=== PATIENT | male | born 1970 ===

== ENCOUNTER 2021-11-09 14:20 | Inpatient (IN) | payer MEDICARE, OTHER ==
[2021-11-09] MEDS ORDERED: ACETAMINOPHEN TAB 325 MG TAB PO PRN (15:34)
[2021-11-09] MEDS ORDERED: MAG HYDROX/AL HYDROX/SIMETH 30 ML CUP PO PRN (15:34)
[2021-11-09] MEDS ORDERED: HALOPERIDOL LACTATE 5 MG/ML 1 ML VIAL IM PRN (15:34)
[2021-11-09] MEDS ORDERED: haloperidoL 5 MG TAB PO PRN (15:37)
[2021-11-09] MEDS ORDERED: LORazepam 2 MG/ML INJ IM PRN (15:37)
[2021-11-09] MEDS: ATORVASTATIN 10 MG TAB PO SCH (20:06)
[2021-11-09] MEDS: FAMOTIDINE 20 MG TAB PO SCH (20:06)
[2021-11-10] MEDS: LORazepam 1 MG TAB PO PRN ×2 (01:19→21:48)
[2021-11-10] MEDS: NICOTINE 14MG/24HR PATCH TRANSDERM SCH (08:54)
[2021-11-10] MEDS: TAMSULOSIN 0.4 MG CAP.ER.24H PO SCH (08:54)
--- NOTE | 2021-11-10 15:33 | P.HP ---
Psychiatric H&P - . H&P Date: 11/10/21 History & Physical: IDENTIFYING DATA: Patient is a 51 yo male with past psychiatric history of schizophrenia who was transferred from [facility] due to active hallucinations. HPI: Patient had presented to [facility] on 11/03/2021, and records from there indicate he has a history of schizophrenia and has not been talking his medications. He was reported being unable to sleep, racing thoughts, hearing voices. He was observed pacing the unit and his room, and displayed "bizarre" interactions. Patient was transferred to [facility] on 11/09/2021. On my assessment today, he is pleasant, attempts to cooperate, is hyperverbal with pressured speech. His thought process is disorganized and difficult to follow at times. He is a poor historian due to the severity of his symptoms. At several times he starts speaking what sounds like gibberish, which he reports is [place] that he learned in college when he liked a Nigerien girl. He reports auditory hallucinations, denies auditory hallucinations. Denies command auditory hallucinations, reports the voices are more and more helpful. Patient denies any suicidal or homicidal ideations intent or plan. He is paranoid and thinks the people at the correction are "knocking me out", giving me too much, but he states he was taking the medications. He can identify one of his medications as Clozapine. I reviewed his CBC from [facility] and his CBC completed on 11/02/21 shows absolute neutrophil count of 4.95. Patient admits to drinking alcohol, a few cans of Twisted Tea per week. He denies illicit drug use. He has a guardian Daiana Hyde at the [facility], and I called today to reach her but had to leave a message. PAST PSYCHIATRIC HISTORY: Patient states that he is diagnosed with a "little bit of depression, and some anxiety". Psychiatric medications: Clozapine, Zyprexa Previous psychiatric hospitalizations: [facility] Psychiatric outpatient follow-up: [facility], Patient denies any history of suicide attempts in the past. PMH: He is disorganized and not able to list his medical problems. ALLERGIES: as per EMR CHEMICAL DEPENDENCY HISTORY: He denies drug use. He drinks Twisted Ice Tea (a few a week). He smokes 2-5 cigarettes per day; used to smoke a 1 ppd. FAMILY PSYCHIATRIC/SUBSTANCE USE HISTORY: Mother - unknown mental health issues SOCIAL HISTORY: Never (reports he proposed to someone in [place]) and no children. He is close with his father and his aunt. He lives in a correction. MENTAL STATUS EXAM: General Appearance: Patient appears to be stated age, has fair hygiene, is dressed in hospital gown. Orientation: He is alert, and oriented to person, place. Unable to assess time due to severity of disorganized speech. Behavior: Patient is seated without any agitated behavior. He is pleasant, calm and cooperative. Speech: Patient's speech is fluent and somewhat pressured. Mood/Affect: Patient reports their mood is good, affect is congruent. Suicidality/Homicidality: Patient denies having any homicidal ideation or suicidal ideations, intent or plan] Perceptions: Patient denies any visual hallucinations. He does endorse auditory hallucinations of people talking to one another but cannot elaborate further. Though content: There is evidence of some delusional thought content, he believes the staff at the correction are messing with his medications and knocking him out. Thought process: Thoughts are disorganized with loose associations. Memory and concentration: Memory is impaired since he is not able to recall many details. Concentration is grossly intact for the purposes of this session. Judgment and insight: Fair to poor STRENGTHS/WEAKNESSES: Strength is that patient is resilient. Weakness is that patient has poor judgment and is impulsive. INTELLECT: Estimated as average to slightly below average. IMPRESSIONS: Schizophrenia Rule out schizoaffective disorder, bipolar type PLAN: -Patient is admitted under involuntary status to [facility] for stabilization of psychiatric symptoms and safety. I have called his guardian's office and they are closed today; I left a message for them to call us back for consent forms. A second certification was completed and along with petition will be filed for court. -Medications: Patient is prescribed Clozapine. I have reviewed his last CBC with diff, completed on 11/02/21 at [facility] and his ANC is normal. I have ordered a STAT CBC with diff for now, and depending on results we will restart his Clozapine. Restart Zyprexa at 20 mg QHS for psychosis. He appears to have been started on Keppra at [facility] but was not on this while at the correction and does not have a seizure disorder according to the correction. This was discussed with unit nurse who will attempt to verify the Keppra prescription with Ladonna Castaneda. -Ativan and Haldol PRN for agitation/aggression -Patient was informed of the risks, benefits and side effects of the medications. I called patient's guardian and left message regarding medications and need for consents. -Internal Medicine consult to perform medical evaluation and physical. -NRT - nicotine patch -SW on board for discharge planning. Encourage patient to participate in groups to work on coping skills. [] Allergies Allergy/AdvReac Type Severity Reaction Status Date / Time No Known Allergies Allergy Verified 11/10/21 13:26 Vital Signs Temp 97.2 F L 11/10/21 01:29 Pulse 83 11/10/21 01:29 Resp 14 11/10/21 01:29 BP 100/66 11/10/21 01:29 Pulse Ox 99 11/09/21 17:05 FiO2 Intake & Output 11/09/21 11/10/21 11/10/21 18:59 06:59 18:59 Weight 105 kg 105 kg Laboratory Last Values TSH 1.420 mIU/L (0.465-4.680) 11/10/21 09:10 11/10/21 14:33
[2021-11-10 15:37] LABS: Basophils # (A) 0.1 k/uL (0-0.2); Basophils % (A) 2 %; Eosinophils % (A) 0 %; HCT 41.4 % (39.0-53.0); HGB 13.4 gm/dL (13.0-17.5); Lymphocytes # (A) 1.5 k/uL (1.0-4.8); Lymphocytes % (A) 24 %; MCH 30.3 pg (25.0-35.0); MCHC 32.5 g/dL (31.0-37.0); MCV 93.3 fL (80.0-100.0); Mean Platelet Volume 8.9; Monocytes # (A) 0.4 k/uL (0-1.0); Monocytes % (A) 7 %; Neutrophils % (A) 65 %; Platelet Count 280 k/uL (150-450); RBC 4.44 m/uL (4.30-5.90); RDW 13.8 % (11.5-15.5); WBC 6.2 k/uL (3.8-10.6)
[2021-11-10 16:06] LABS: Chol/HDL Ratio 5.72 Ratio; LDL Cholesterol,Calculated 112.3 mg/dL (0.0-131.0)
[2021-11-10] MEDS: cloZAPine 25 MG TAB PO SCH (20:05)
[2021-11-10] MEDS: ATORVASTATIN 10 MG TAB PO SCH (20:05)
[2021-11-10] MEDS: cloZAPine 100 MG TAB PO SCH (20:05)
[2021-11-10] MEDS: OLANZapine ODT 10 MG TAB PO SCH (20:05)
[2021-11-10] MEDS: FAMOTIDINE 20 MG TAB PO SCH (20:05)
--- NOTE | 2021-11-11 03:03 | P.CONS ---
History of Present Illness - Reason for Consult Consult date: 11/10/21 - History of Present Illness The patient is a 51-year-old male with a PMH of schizophrenia who was transferred from [facility] where he was admitted for psychosis. The patient reports that he has been hearing voices and that he was tired. He denied any physical complaints at the time of interview. Reports that he is concerned that people are out to get him and that he needs to watch his back. He reports smoking 2-3 cigarettes daily. Denied illicit substance use or alcohol use. Denied experiencing chest discomfort, shortness of breath, fever, chills, cough, nausea, vomiting, abdominal pain, diarrhea. Review of systems: Pertinent positives and negatives as discussed in HPI, a complete review of systems was performed and all other systems are negative. Physical examination: General: non toxic, no distress, appears at stated age, normal weight Derm: no unusual rashes/lesions no unusual ecchymoses, warm, dry Head: atraumatic, normocephalic, symmetric Eyes: EOMI, no lid lag, anicteric sclera, pupils equal round reactive to light ENT: Nose and ears atraumatic, no thrush, no pharyngeal erythema Neck: No thyromegaly, no cervical lymphadenopathy, trachea midline, supple Mouth: no lip lesion, mucus membranes moist Cardiovascular: S1S2 reg, no murmur, positive posterior tibial pulse bilateral, no edema, capillary refill less than 2 seconds Lungs: CTA bilateral, no rhonchi, no rales , no accessory muscle use Abdominal: soft, nontender to palpation, no guarding, no appreciable organomegaly, normal bowel sounds Ext: no gross muscle atrophy, no contractures, Neuro: CN II-XI grossly intact, light touch intact all 4 extremities, finger to nose within normal limits, Psych: Alert, oriented, guarded affect Assessment/plan Psychosis -As per psychiatry Tobacco abuse -Advised on importance of cessation Thank you for allowing us to participate in the care of this patient. We will follow peripherally. Do not hesitate to contact us with questions. Someone can be reached from the [facility] [place] hospitalist group at all hours of the day at [phone]. Past Medical History Past Medical History: No Reported History History of Any Multi-Drug Resistant Organisms: None Reported Past Surgical History: No Surgical Hx Reported Smoking Status: Current every day smoker - Past Family History Father Family Medical History: Cancer Medications and Allergies Home Medications Medication Instructions Recorded Confirmed Type Fluticasone Nasal [place] [Flonase 2 spray EA NOSTRIL DAILY 11/10/21 11/10/21 History Nasal [place]] Sertraline [Zoloft] 50 mg PO DAILY 11/10/21 11/10/21 History cloZAPine [Clozaril] 25 mg PO BID 11/10/21 11/10/21 History cloZAPine [Clozaril] 100 mg PO BID 11/10/21 11/10/21 History Allergies Allergy/AdvReac Type Severity Reaction Status Date / Time No Known Allergies Allergy Verified 11/10/21 13:26 Physical Exam Vitals: Vital Signs Temp Pulse Resp BP 11/10/21 01:29 97.2 F L 83 14 100/66 Intake and Output 11/10/21 11/10/21 11/10/21 06:59 14:59 22:59 Other: Weight 105 kg Results CBC & Chem 7: 11/10/21 09:10 Labs: Abnormal Lab Results - Last 24 Hours (Table) 11/10/21 Range/Units 09:10 Triglycerides 210.00 H (0.00-149.00) mg/dL VLDL Cholesterol, Calc 42.00 H (5.00-40.00) mg/dL HDL Cholesterol 32.70 L (40.00-60.00) mg/dL
[2021-11-11] MEDS: NICOTINE 14MG/24HR PATCH TRANSDERM SCH (08:55)
[2021-11-11] MEDS: TAMSULOSIN 0.4 MG CAP.ER.24H PO SCH (08:56)
[2021-11-11] MEDS: FLUTICASONE 50MCG/SPRAY NASAL 16GM EA NOSTRIL SCH (08:56)
[2021-11-11] MEDS: SERTRALINE 50 MG TAB PO SCH (08:56)
[2021-11-11] MEDS: cloZAPine 100 MG TAB PO SCH ×2 (08:56→21:14)
[2021-11-11] MEDS: cloZAPine 25 MG TAB PO SCH ×2 (08:56→21:14)
[2021-11-11] MEDS: FAMOTIDINE 20 MG TAB PO SCH (21:14)
[2021-11-11] MEDS: ATORVASTATIN 10 MG TAB PO SCH (21:15)
[2021-11-11] MEDS: OLANZapine ODT 10 MG TAB PO SCH (21:15)
--- NOTE | 2021-11-11 22:19 | P.PN ---
Progress Note - Text Progress Note Date: 11/11/21 Interval History: Patient was seen watching TV with his peers and was directable and agreeable to speak with curriculum writer in the office. At this time patient denies any suicidal or homical ideations, intent or plan. Patient denies any auditory, visual hallucinations and denies any paranoia or delusions. He remains intrusive. Nurse and peers have complained of inappropriate touching, and patient entered another's room and talked to this peer about sexual intercourse. Nursing staff moved patient's room to the other end of the unit with mostly male neighbors. Patient was educated on appropriate boundaries and asked to not enter peer's room. Patient denies any side effects from the medications and has been compliant with meds. Mental Status Exam: General Appearance: Patient appears to be stated age, has fair hygiene, is dressed in hospital gown. Orientation: He is alert, and oriented to person, place, time. Behavior: Patient is standing without any agitated behavior. He has displayed inappropriate boundaries with female peers. Speech: Patient's speech is fluent and nonpressured. Mood/Affect: Patient reports his mood is good, affect is congruent. Suicidality/Homicidality: Patient denies having any homicidal ideation or suicidal ideations, intent or plan. Perceptions: Patient denies any visual hallucinations or auditory hallucinations. Though content: There is evidence of some delusional thought content. He has made sexual comments to a peer today. Thought process: Thoughts are becoming more organized, but still some looseness of associations. Memory and concentration: Grossly intact for the purposes of this session. Judgment and insight: Poor Assessment Schizophrenia Rule out schizoaffective disorder, bipolar type Plan: -Patient continues to meet criteria for inpatient psychiatric admission for symptom stabilization and safety. I attempted to contact guardian yesterday for consents but had to leave a message. A second certification was completed. -Medications: Clozapine was restarted yesterday at 125 mg BID once his ANC returned normal. H is Clozapine will be increased to 150 mg BID starting tomorrow for psychosis/mood. Continue Zyprexa 20 mg QHS for psychosis. -When necessary Ativan and Haldol for agitation/aggression. -NRT - nicotine patch -SW on board for discharge planning. Encouraged the patient to participate in milieu. []
[2021-11-11] MEDS: LORazepam 1 MG TAB PO PRN (23:33)
[2021-11-12] MEDS: FLUTICASONE 50MCG/SPRAY NASAL 16GM EA NOSTRIL SCH (09:11)
[2021-11-12] MEDS: NICOTINE 14MG/24HR PATCH TRANSDERM SCH (09:11)
[2021-11-12] MEDS: cloZAPine 25 MG TAB PO SCH ×2 (09:12→20:59)
[2021-11-12] MEDS: cloZAPine 100 MG TAB PO SCH ×2 (09:12→20:59)
[2021-11-12] MEDS: TAMSULOSIN 0.4 MG CAP.ER.24H PO SCH (09:12)
[2021-11-12] MEDS: SERTRALINE 50 MG TAB PO SCH (09:12)
--- NOTE | 2021-11-12 12:19 | P.PN ---
Progress Note - Text Progress Note Date: 11/12/21 Interval History: Patient was seen in his room this morning and was agreeable to speak to contract technical writer in the office. Patient was asking several questions to contract technical writer and was somewhat intrusive. He made some bizarre comments however for the most part was fairly directable during conversation and attempted to cooperate. He appears to have improvement in his thought process and is more logical today. He claims that his mood is gradually improving along with his anxiety today. At this time patient denies any suicidal or homical ideations, intent or plan. Patient denies any auditory, visual hallucinations and denies any paranoia or delusions. He apparently has been inappropriate with other patients and sexually preoccupied at times.Patient denies any side effects from the medications and has been compliant with meds. Mental Status Exam: General Appearance: Patient appears to be stated age, has fair hygiene, is dressed in hospital gown. Behavior: Patient is standing without any agitated behavior. More directable today. Speech: Patient's speech is fluent and nonpressured. Mood/Affect: Patient reports his mood is "ok", affect is congruent. Suicidality/Homicidality: Patient denies having any homicidal ideation or suicidal ideations, intent or plan. Perceptions: Patient denies any visual hallucinations or auditory hallucinations. Though content: There is evidence of some delusional thought content. More Oriented and logical today. Intrusive. Thought process: Thoughts are becoming more organized, but still some looseness of associations. Memory and concentration: Grossly intact for the purposes of this session. Judgment and insight: Chronically poor, improving mildly Assessment Schizoaffective disorder, bipolar type Plan: -Patient continues to meet criteria for inpatient psychiatric admission for symptom stabilization and safety. I attempted to contact guardian yesterday for consents but had to leave a message. -Medications: Clozapine 150 mg BID for psychosis/mood. added benadryl 25 mg qhs for insomnia. decrease zyprexa to 10 mg qhs and continue to titrate down with plan to titrate off. Continue Zyprexa 20 mg QHS for psychosis. -When necessary Ativan and Haldol for agitation/aggression. -NRT - nicotine patch -SW on board for discharge planning. Encouraged the patient to participate in milieu.
[2021-11-12] MEDS: ATORVASTATIN 10 MG TAB PO SCH (20:59)
[2021-11-12] MEDS: FAMOTIDINE 20 MG TAB PO SCH (20:59)
[2021-11-12] MEDS: diphenhydrAMINE 25 MG CAP PO SCH (20:59)
[2021-11-12] MEDS ORDERED: OLANZapine ODT 10 MG TAB PO SCH (21:00)
[2021-11-12] MEDS: LORazepam 1 MG TAB PO PRN (21:01)
[2021-11-12] MEDS: MAGNESIUM HYDROXIDE 2,400 MG/10 ML CUP PO PRN (21:01)
[2021-11-13] MEDS: cloZAPine 100 MG TAB PO SCH ×2 (09:01→21:52)
[2021-11-13] MEDS: SERTRALINE 50 MG TAB PO SCH (09:01)
[2021-11-13] MEDS: cloZAPine 25 MG TAB PO SCH ×2 (09:01→21:52)
[2021-11-13] MEDS: TAMSULOSIN 0.4 MG CAP.ER.24H PO SCH (09:02)
[2021-11-13] MEDS: FLUTICASONE 50MCG/SPRAY NASAL 16GM EA NOSTRIL SCH (09:03)
[2021-11-13] MEDS: NICOTINE 14MG/24HR PATCH TRANSDERM SCH (09:04)
--- NOTE | 2021-11-13 11:33 | P.PN ---
Progress Note - Text Progress Note Date: 11/13/21 Interval History: Patient was seen in his room this morning and was agreeable to speak to engineering technical writer in the office. Patient appears to be more directable during conversation today. He continues to make bizarre statements and spoke about "traveling the world". He had a flight of ideas speaking about different countries and different things that he liked to accomplish when he leaves the hospital. He did make some illogical statements and loose associations today. He appears to be more directable during conversation and has a mild improvement in his insight and judgment. He claims that he has been going to some groups however was vague about what he is learning. He is agreeable to continue on with the closet pain at this time. He states that he is able to sleep fairly last night approximately 8-10 hours. fair appetite. At this time patient denies any suicidal or homical ideations, intent or plan. Patient denies any auditory, visual hallucinations and denies any paranoia or delusions. Patient denies any side effects from the medications and has been compliant with meds. Mental Status Exam: General Appearance: Patient appears to be stated age, has fair hygiene, is dressed in street clothing. Behavior: Patient is standing without any agitated behavior. More directable today. Speech: Patient's speech is fluent and nonpressured. Mood/Affect: Patient reports his mood is "alright", affect is congruent. Suicidality/Homicidality: Patient denies having any homicidal ideation or suicidal ideations, intent or plan. Perceptions: Patient denies any visual hallucinations or auditory hallucinations. Though content: There is evidence of some delusional thought content. More Or iented and logical today. less intrusive Thought process: Thoughts are becoming more organized, but still some looseness of associations. flight of ideas. Memory and concentration: Grossly intact for the purposes of this session. Judgment and insight: Chronically poor, improving mildly Assessment Schizoaffective disorder, bipolar type Plan: -Patient continues to meet criteria for inpatient psychiatric admission for symptom stabilization and safety. -Medications: increase Clozapine 175 mg BID for psychosis/mood. benadryl 25 mg qhs for insomnia. decrease zyprexa to 5 mg qhs and continue to titrate down with plan to titrate off. -When necessary Ativan and Haldol for agitation/aggression. -NRT - nicotine patch -SW on board for discharge planning. Encouraged the patient to participate in milieu.
[2021-11-13] MEDS: FAMOTIDINE 20 MG TAB PO SCH (21:52)
[2021-11-13] MEDS: ATORVASTATIN 10 MG TAB PO SCH (21:53)
[2021-11-13] MEDS: OLANZapine ODT 5 MG TAB PO SCH (21:54)
[2021-11-13] MEDS: diphenhydrAMINE 25 MG CAP PO SCH (21:55)
[2021-11-13] MEDS: MAGNESIUM HYDROXIDE 2,400 MG/10 ML CUP PO PRN (21:58)
[2021-11-13] MEDS: LORazepam 1 MG TAB PO PRN (23:39)
[2021-11-14 08:03] LABS: Basophils # (A) 0.1 k/uL (0-0.2); Basophils % (A) 1 %; Eosinophils % (A) 0 %; HCT 38.4 % (39.0-53.0); HGB 12.9 gm/dL (13.0-17.5); Lymphocytes # (A) 2.1 k/uL (1.0-4.8); Lymphocytes % (A) 36 %; MCHC 33.6 g/dL (31.0-37.0); MCV 89.4 fL (80.0-100.0); Mean Platelet Volume 7.6; Monocytes # (A) 0.5 k/uL (0-1.0); Monocytes % (A) 8 %; Neutrophils # (A) 2.9 k/uL (1.3-7.7); Neutrophils % (A) 51 %; Platelet Count 240 k/uL (150-450); RDW 13.2 % (11.5-15.5); WBC 5.7 k/uL (3.8-10.6)
[2021-11-14] MEDS: NICOTINE 14MG/24HR PATCH TRANSDERM SCH (08:52)
[2021-11-14] MEDS: cloZAPine 25 MG TAB PO SCH ×2 (08:53→21:19)
[2021-11-14] MEDS: FLUTICASONE 50MCG/SPRAY NASAL 16GM EA NOSTRIL SCH (08:53)
[2021-11-14] MEDS: TAMSULOSIN 0.4 MG CAP.ER.24H PO SCH (08:53)
[2021-11-14] MEDS: SERTRALINE 50 MG TAB PO SCH (08:54)
[2021-11-14] MEDS: cloZAPine 100 MG TAB PO SCH ×2 (08:54→21:19)
--- NOTE | 2021-11-14 11:59 | P.PN ---
Progress Note - Text Progress Note Date: 11/14/21 Interval History: Patient was seen taking part in group today and was agreeableto record the off ice. Patient appears to be more directable today and more appropriate during conversation. We spoke about inappropriate behavior on the unit and he states that "I won't do it again" regarding making other females on the unit feeling uncomfortable. He continues to make some mild bizarre statements however this has been improving. He was more directable and appears to have a mild improvement in his insight and judgment. He spoke about other placement options however is [facility]. Patient is becoming more logical in his statements. He is agreeable to have his closet pain changed and states that he slept fairly last night, fair appetite. He states that he is having trouble moving his bowels and is given a stool softener today. At this time patient denies any suicidal or homical ideations, intent or plan. Patient denies any auditory, visual hallucinations and denies any paranoia or delusions. Patient denies any side effects from the medications and has been compliant with meds. Mental Status Exam: General Appearance: Patient appears to be stated age, has fair hygiene, is dressed in street clothing. Behavior: Patient is standing without any agitated behavior. More directable today. Speech: Patient's speech is fluent and nonpressured. Mood/Affect: Patient reports his mood is "ok", affect is congruent and constricted. Suicidality/Homicidality: Patient denies having any homicidal ideation or suicidal ideations, intent or plan. Perceptions: Patient denies any visual hallucinations or auditory hallucinations. Though content: There is evidence of some delusional thought content, improving. More Oriented and logical today. less intrusive Thought process: Thoughts are becoming more organized, but still some looseness of associations. improving Memory and concentration: Grossly intact for the purposes of this session. Judgment and insight: Chronically poor, improving mildly Assessment Schizoaffective disorder, bipolar type Plan: -Patient continues to meet criteria for inpatient psychiatric admission for symptom stabilization and safety. -Medications: change Clozapine 100 mg daily + 300 mg qhs for psychosis/mood. benadryl 25 mg qhs for insomnia. d/c zyprexa today -When necessary Ativan and Haldol for agitation/aggression. -NRT - nicotine patch -SW on board for discharge planning. Encouraged the patient to participate in milieu. patient [facility] upon stabilization. likely discharge in 1-2 days.
[2021-11-14] MEDS: SENNOSIDES-DOCUSATE SODIUM 1 EACH TAB PO SCH ×2 (13:47→21:23)
[2021-11-14] MEDS: diphenhydrAMINE 25 MG CAP PO SCH (21:19)
[2021-11-14] MEDS: ATORVASTATIN 10 MG TAB PO SCH (21:19)
[2021-11-14] MEDS: FAMOTIDINE 20 MG TAB PO SCH (21:19)
[2021-11-14] MEDS: LORazepam 1 MG TAB PO PRN (21:20)
[2021-11-14] MEDS: OLANZapine ODT 5 MG TAB PO SCH (21:32)
[2021-11-15 08:38] VITALS: BP 109/69; PULSE 113; RESP 18; TEMP 97.8
[2021-11-15] MEDS: NICOTINE 14MG/24HR PATCH TRANSDERM SCH (08:39)
[2021-11-15] MEDS: SERTRALINE 50 MG TAB PO SCH (08:39)
[2021-11-15] MEDS: TAMSULOSIN 0.4 MG CAP.ER.24H PO SCH (08:39)
[2021-11-15] MEDS: cloZAPine 25 MG TAB PO SCH (08:39)
[2021-11-15] MEDS: SENNOSIDES-DOCUSATE SODIUM 1 EACH TAB PO SCH (08:39)
[2021-11-15] MEDS: FLUTICASONE 50MCG/SPRAY NASAL 16GM EA NOSTRIL SCH (08:39)
[2021-11-15] MEDS: cloZAPine 100 MG TAB PO SCH (08:39)
--- NOTE | 2021-11-15 11:31 | P.DS ---
Providers Date of admission: 11/09/21 17:03 Expected date of discharge: 11/15/21 Attending physician: Patrick Smith MD Consults: 11/09/21 15:34 Consult Physician Routine Consulting Provider: Abby Physician Consult Reason/Comments: medical management Do you want consulting provider notified?: Yes Primary care physician: Zonia Mullins - Discharge Diagnosis(es) (1) Schizoaffective disorder, bipolar type Current Visit: Yes Status: Acute Priority: High Hospital Course: Admission HPI: Admission note was completed by Dr Christie "Patient is a 51 yo male with past psychiatric history of schizophrenia who was transferred from [facility] due to active hallucinations. Patient had presented to [facility] on 11/03/2021, and records from there indicate he has a history of schizophrenia and has not been talking his medications. He was reported being unable to sleep, racing thoughts, hearing voices. He was observed pacing the unit and his room, and displayed "bizarre" interactions. Patient was transferred to [facility] on 11/09/2021. On my assessment today, he is pleasant, attempts to cooperate, is hyperverbal with pressured speech. His thought process is disorganized and difficult to follow at times. He is a poor historian due to the severity of his symptoms. At several times he starts speaking what sounds like gibberish, which he reports is Nigerian that he learned in college when he liked a Nigerian girl. He reports auditory hallucinations, denies auditory hallucinations. Denies command auditory hallucinations, reports the voices are more and more helpful. Patient denies any suicidal or homicidal ideations intent or plan. He is paranoid and thinks the people at the pen[facility]iary are "knocking me out", giving me too much, but he states he was taking the medications. He can identify one of his medications as Clozapine. I reviewed his CBC from [facility] and his CBC completed on 11/02/21 shows absolute neutrophil count of 4.95. Patient admits to drinking alcohol, a few cans of Twisted Tea per week. He denies illicit drug use. He has a guardian Daiana yHde at the [facility], and I called today to reach her but had to leave a message." Hospital course: Upon admission to the unit patient was directable and agreeable to commence treatment and signed adult voluntary form. Patient got along well with other patients on the unit and followed unit protocol. Patient was compliant with the medications and denied any side effects throughout hospital course. Patient was started on clozapine as he was on previously and increased to a dose of 100 mg daily +300 mg daily at bedtime for psychosis/mood. Also started on Benadryl 25 mg daily at bedtime for insomnia. Patient was discontinued off of his Zyprexa. Patient was previously on a deferral and a demand for hearing was filed and patient will be set for his demand court date set for 11/20 and [facility]. Staff let the court know that patient was going to be discharged today. Patient spoke of his stressors and engaged in therapy both group and individual. Patient was also seen by medical team for history and physical exam. Throughout the course of the hospitalization patient gradually improved with regards to mood, anxiety, psychosis, sleep and returned back to their baseline level of functioning. On the day of discharge patient denied any suicidal or homicidal ideations intent or plan denied any auditory or visual hallucinations. Patient endorsed wanting to live for his health and future. The patient denied any access to guns or weapons. Patient denied any paranoia and did not endorse any delusions. Patient does not have a significant history of substance abuse and was counseled on abstaining from all substances including alcohol and marijuana. Patient was also counseled on the medications and need for regular compliance and was encouraged to follow-up with their outpatient appointment for mental health and also for primary care. Patient will be [facility] and will be following up with [facility] on discharge. Mental status exam: General Appearance: Patient appears to be stated age is alert, pleasant, and cooperative. Patient is in no acute distress and has improved hygiene and groom ing Behavior: Patient is calmly seated without any agitated behavior. Directable. Speech: Patient's speech is fluent and nonpressured. Mood/Affect: Patient reports their mood is "better", affect is congruent and euthymic. Suicidality/Homicidality: Patient denies having any suicidal or homicidal ideation intent or plan. Perceptions: Patient denies any auditory or visual hallucinations. Though content/process: There is no evidence of any delusional thought content and thought process is linear and goal-directed. Memory and concentration: AOX3, grossly intact for the purposes of this session. Can spell "WORLD" backwards correctly. Judgment and insight: improved with guarded prognosis Impression: Schizoaffective disorder bipolar type Plan: -Continue with discharge today as patient has improved and stabilized psychiatrically and is not currently an imminent threat to himself and/or others. Patient will remain at chronically elevated risk for harm to self and/or others due to his impulsivity and chronic mental illness. -Continue medications: Clozapine 100 mg daily +300 mg daily at bedtime for psychosis/mood, Benadryl 25 mg daily at bedtime for insomnia. -Patient was counseled on the need for medication compliance and appropriate follow-up at mental health and also primary care for medical issues. Patient verbalized understanding and agreed. -Social work to help arrange for patient's [facility] today [facility]. Social work also to arrange for patients follow up appointments with [facility] for psychiatric care along with follow up with primary care provider. -Patient counseled on abstaining from recreational drugs and marijuana and alcohol. Was informed/educated on the adverse effects on their physical and mental health. Patient verbally agreed and understood. -Patient was instructed to return to the hospital or seek immediate medical care if their psychiatric or medical symptoms do worsen or reoccur. Allergies Allergy/AdvReac Type Severity Reaction Status Date / Time No Known Allergies Allergy Verified 11/10/21 13:26 Laboratory Results WBC 5.7 k/uL (3.8-10.6) 11/14/21 07:06 RBC 4.30 m/uL (4.30-5.90) 11/14/21 07:06 Hgb 12.9 gm/dL (13.0-17.5) L 11/14/21 07:06 Hct 38.4 % (39.0-53.0) L 11/14/21 07:06 MCV 89.4 fL (80.0-100.0) 11/14/21 07:06 MCH 30.0 pg (25.0-35.0) 11/14/21 07:06 MCHC 33.6 g/dL (31.0-37.0) 11/14/21 07:06 RDW 13.2 % (11.5-15.5) 11/14/21 07:06 Plt Count 240 k/uL (150-450) 11/14/21 07:06 MPV 7.6 11/14/21 07:06 Neutrophils % 51 % 11/14/21 07:06 Lymphocytes % 36 % 11/14/21 07:06 Monocytes % 8 % 11/14/21 07:06 Eosinophils % 0 % 11/14/21 07:06 Basophils % 1 % 11/14/21 07:06 Neutrophils # 2.9 k/uL (1.3-7.7) 11/14/21 07:06 Lymphocytes # 2.1 k/uL (1.0-4.8) 11/14/21 07:06 Monocytes # 0.5 k/uL (0-1.0) 11/14/21 07:06 Eosinophils # 0.0 k/uL (0-0.7) 11/14/21 07:06 Basophils # 0.1 k/uL (0-0.2) 11/14/21 07:[address] Glu mg/dL 122 11/10/21 09:10 Hemoglobin A1c 5.9 % (0.0-6.0) 11/10/21 09:10 Triglycerides 210.00 mg/dL (0.00-149.00) H 11/10/21 09:10 Cholesterol 187.00 mg/dL (0.00-200.00) 11/10/21 09:10 LDL Cholesterol, Calc 112.3 mg/dL (0.0-131.0) 11/10/21 09:10 VLDL Cholesterol, Calc 42.00 mg/dL (5.00-40.00) H 11/10/21 09:10 HDL Cholesterol 32.70 mg/dL (40.00-60.00) L 11/10/21 09:10 Cholesterol/HDL Ratio 5.72 Ratio 11/10/21 09:10 TSH 1.420 mIU/L (0.465-4.680) 11/10/21 09:10 Vital Signs Temp 97.8 F 11/15/21 08:38 Pulse 113 H 11/15/21 08:38 Resp 18 11/15/21 08:38 BP 109/69 11/15/21 08:38 Pulse Ox 99 11/09/21 17:05 FiO2 Patient Condition at Discharge: Stable Plan - Discharge Summary New Discharge Prescriptions: New cloZAPine [Clozaril] 100 mg PO DAILY 30 Days tab cloZAPine [Clozaril] 300 mg PO HS 30 Days tab Tamsulosin [Flomax] 0.4 mg PO DAILY 30 Days cap Nicotine 14Mg/24Hr Patch [Habitrol] 1 patch TRANSDERM DAILY 14 Days patch diphenhydrAMINE [Benadryl] 25 mg PO HS 30 Days cap Atorvastatin [Lipitor] 10 mg PO HS 30 Days tab Famotidine [Pepcid] 20 mg PO HS 30 Days tab Sennosides-Docusate Sodium [Senokot-S] 1 each PO BID 30 Days tab Continue Sertraline [Zoloft] 50 mg PO DAILY 30 Days tab Fluticasone Nasal Exeter [Flonase Nasal Exeter] 2 spray EA NOSTRIL DAILY #1 ml Discontinued cloZAPine [Clozaril] 25 mg PO BID cloZAPine [Clozaril] 100 mg PO BID Discharge Medication List Atorvastatin [Lipitor] 10 mg PO HS 30 Days tab 11/15/21 [Rx] Famotidine [Pepcid] 20 mg PO HS 30 Days tab 11/15/21 [Rx] Fluticasone Nasal Exeter [Flonase Nasal Exeter] 2 spray EA NOSTRIL DAILY #1 ml 11/15/21 [Rx] Nicotine 14Mg/24Hr Patch [Habitrol] 1 patch TRANSDERM DAILY 14 Days patch 11/15/21 [Rx] Sennosides-Docusate Sodium [Senokot-S] 1 each PO BID 30 Days tab 11/15/21 [Rx] Sertraline [Zoloft] 50 mg PO DAILY 30 Days tab 11/15/21 [Rx] Tamsulosin [Flomax] 0.4 mg PO DAILY 30 Days cap 11/15/21 [Rx] cloZAPine [Clozaril] 100 mg PO DAILY 30 Days tab 11/15/21 [Rx] cloZAPine [Clozaril] 300 mg PO HS 30 Days tab 11/15/21 [Rx] diphenhydrAMINE [Benadryl] 25 mg PO HS 30 Days cap 11/15/21 [Rx] Follow up Appointment(s)/Referral(s): [facility], [facility] [Other] - 1 Week Patient Instructions/Handouts: How to Stop Smoking (DC), Schizoaffective Disorder (DC) Activity/Diet/Wound Care/Special Instructions: Avoid the use of street drugs and alcohol. Take all prescriptions as prescribed. When you are in need of refills on your medications, please contact your medical provider and/or outpatient psychiatrist to have this done. Please go to scheduled outpatient appointment for aftercare treatment. If symptoms return or become worse, call the crisis line at and/or go to the nearest emergency room for evaluation. Discharge Disposition: OTHER INSTITUTION NOT DEFINED
[2021-11-15] MEDS ORDERED: cloZAPine 100 MG TAB PO SCH (21:00)
[2021-11-16] MEDS ORDERED: cloZAPine 100 MG TAB PO SCH (09:00)
== END 2021-11-15 13:35 | disposition home or self-care (01) | DRG 885 ==
LOC: 3MHU 17:03 → EEVIPCON 17:03 → 3MHU 11-11 19:42
PROVIDERS: ADMIT Psychiatry & Neurology Psychiatry; ATTEND Psychiatry & Neurology Psychiatry
DX: F25.0 Schizoaffective disorder, bipolar type (principal); F17.210 Nicotine dependence, cigarettes, uncomplicated; F41.9 Anxiety disorder, unspecified; G47.00 Insomnia, unspecified; Z79.899 Other long term (current) drug therapy
CPT/HCPCS: 80061; 83036; 84443; 85025; 87635